=== PATIENT | male | born 1975 | race African-American/Black ===

== ENCOUNTER → 2018-09-21 | Outpatient (CLI) | payer OTHER ==
[~2018-09-21] MED LIST: CIPRO500 MG PO; HYDROCODONE-AP1 EAC6 PO; IBUPROFEN 800800 M1 PO; NOHOMEMEDICATIONS; NORCO 5-325 TA1 EACH PO; OMEPRAZOLE 20 M20 M1 PO; ONDANSETRON HCL4 M2 PO; ZIAGEN 300 MG300 MG
== END ==
LOC: M.RAD 16:08
DX: M54.5 Low back pain (principal); M25.552 Pain in left hip; V89.2XXA Person injured in unspecified motor-vehicle accident, traffic, initial encounter

== ENCOUNTER 2019-07-03 14:43 | Inpatient (IN) | payer OTHER ==
[2019-07-03] VITALS (7 sets, daily range): BP systolic 114–155; BP diastolic 78–107
[~2019-07-03] VITALS: Ht 175.3 cm; Wt 81.6 kg
[2019-07-03] MEDS ORDERED: ZESTORETIC 20-1 EAC3 PO (14:50)
[2019-07-03 14:58] LABS: HEMATOCRIT 36.6 % (42.0-52.0); HEMOGLOBIN 12.7 gm/dL (14.0-18.0); MCH 31.7 pg (26.0-34.0); MCHC 34.9 g/dL (28.0-37.0); MCV 91.1 fL (80.0-100.0); MPV 9.3 fl. (7.2-11.1); RBC 4.01 mil/uL (4.50-6.00); RDW-CV 15.4 % (10.5-14.5)
[2019-07-03 15:18] LABS: ANION GAP 12 mmol/L (7-16); BUN 39 mg/dL (7-18); CALCIUM 8.9 mg/dL (8.5-10.1); CHLORIDE 101 mmol/L (98-107); CO2 23 mmol/L (21-32); CREATININE 1.8 mg/dL (0.6-1.3); GLUCOSE 107 mg/dL (70-99); POTASSIUM 4.4 mmol/L (3.5-5.1); SODIUM 136 mmol/L (136-145)
[2019-07-03 15:23] LABS: ALBUMIN 3.7 g/dL (3.4-5.0); ALKALINE PHOSPHATASE 94 U/L (46-116); TOTAL BILIRUBIN 0.4 mg/dL (<0.1-1.0); TROPONIN-I LEVEL <0.06 ng/mL (<0.06)
[2019-07-03 15:42] LABS: SGOT 31 U/L (15-37); SGPT 43 U/L (30-65)
[2019-07-03] MEDS ORDERED: BENTYL 10 MG CA10 M1 PO (18:12)
[2019-07-03] MEDS ORDERED: CELEBREX 200 M200 M1 PO (18:16)
[2019-07-03] MEDS ORDERED: DICYCLOMINE HCL20 MG PO (18:16)
[2019-07-03] MEDS ORDERED: TYLENOL EXTRA500 MG PO (18:16)
[2019-07-04] VITALS (27 sets, daily range): BP systolic 117–155; BP diastolic 76–112
[2019-07-04 03:39] LABS: CALCIUM 9.4 mg/dL (8.5-10.1); CREATININE 1.4 mg/dL (0.6-1.3); POTASSIUM 4.6 mmol/L (3.5-5.1)
[2019-07-04 03:50] LABS: HEMATOCRIT 37.6 % (42.0-52.0); HEMOGLOBIN 12.5 gm/dL (14.0-18.0); MCH 30.4 pg (26.0-34.0); MCHC 33.3 g/dL (28.0-37.0); MCV 91.4 fL (80.0-100.0); MPV 10.1 fl. (7.2-11.1); NUCLEATED RBCS 0 /100WBC; PLATELET COUNT* 197 thou/uL (150-400); RBC 4.12 mil/uL (4.50-6.00); RDW-CV 15.5 % (10.5-14.5); WBC 14.2 thou/uL (4.0-11.0)
[2019-07-04 04:57] LABS: ABSOLUTE EOSINOPHILS 0.1 thou/uL (0.0-0.7); ABSOLUTE LYMPHOCYTES 1.7 thou/uL (0.8-5.3); ABSOLUTE MONOCYTES 0.1 thou/uL (0.0-1.2); ABSOLUTE NEUTROPHILS 12.2 thou/uL (1.6-8.1); ANISOCYTOSIS 1+; PLATELET ESTIMATE ADEQUATE
--- NOTE | 2019-07-04 14:42 | EKG ---
[place] [address] ELECTROCARDIOGRAM REPORT Name: JAMAICA BURNETTE Room: [address] ADM IN M.R.#: [id number] Admission: 07/03/19 Attend Phys: Harinder Damico MD Discharge: Date of : 73 Report #: [id number] THIS REPORT FOR: //name// [facility] Test Date: 2019-07-04 Test Time: 11:42:28 Pat Name: JAMAICA BURNETTE Department: Room: [address] Gender: M Assistant Basketball Coach: : 1975 Requested By: Harinder Damico Order Number: [id number] MD: Tobi Hamm Measurements Intervals Outlook Rate: 123 P: 46 [place]: 166 QRS: 26 QRSD: 92 T: -26 QT: 298 QTc: 427 Interpretive Statements Sinus tachycardia Borderline T abnormalities, inferior leads Compared to ECG 08/20/2014 21:25:55 T-wave abnormality now present Sinus rhythm no longer present Electronically Signed On 07-04-2019 14:41:55 CDT by Tobi Hamm [email or web address] <ELECTRONICALLY SIGNED> By: Tobi Hamm MD, [facility] 07/04/19 1441 1142 1142 Tobi Hamm MD, [facility] /EPI
--- NOTE | 2019-07-04 15:28 | 2DMMODE ---
[place] [address] 2 D/M-MODE ECHOCARDIOGRAM Name: JAMAICA BURNETTE Room: [address] IN [facility]#: [id number] Admission: 07/03/19 Attend Phys: Harinder Damico, Discharge: Date of : 73 Date of Service: 07/04/19 1527 Report #: [id number] THIS REPORT FOR: //name// APPROVED REPORT Study performed: 07/04/2019 14:28:53 EXAM: Comprehensive 2D, Doppler, and color-flow Echocardiogram Patient Location: In-Patient Room #: 003 BSA: 1.98 HR: 132 bpm BP: 155/107 mmHg Other Information Study Quality: Good Indications Abnormal ECG 2D Dimensions IVSd: 11.48 (7-11mm) LVOT Diam: 20.66 (18-24mm) LVDd: 47.01 mm PWd: 10.66 (7-11mm) Ascending Ao: 29.81 (22-36mm) LVDs: 20.86 (25-40mm) Aortic Root: 29.77 mm Volumes Left Atrial Volume (Systole) LA ESV Index: 9.60 mL/m2 Aortic Valve AoV Peak Jesús.: 1.45 m/s AO Peak Gr.: 8.46 mmHg LVOT Max P.02 mmHg AO Mean Gr.: 5.03 mmHg LVOT Mean P.92 mmHg LVOT Max V: 1.23 m/s AO V2 VTI: 24.94 cm LVOT Mean V: 0.79 m/s SAMAN (VTI): 2.58 cm2 LVOT V1 VTI: 19.18 cm TDI Medial E' Jesús.: 0.20 m/s Lateral E' Jesús.: 0.11 m/[place] [address] 2 D/M-MODE ECHOCARDIOGRAM Name: JAMAICA BURNETTE Room: [address] IN [facility]#: [id number] Admission: 07/03/19 Attend Phys: Harinder Damico, Discharge: Date of : 73 Date of Service: 07/04/19 1527 Report #: [id number] PV Peak Jesús.: 1.46 m/s PV Peak Gr.: 8.50 mmHg Tricuspid Valve RAP Estimate: 5.00 mmHg TR Peak Gr.: 26.86 mmHg RVSP: 31.86 mmHg PA Pressure: 31.86 mmHg Left Ventricle The left ventricle is normal size. There is normal LV segmental wall motion. There is normal left ventricular wall thickness. Left ventricular systolic function is normal. LVEF is >70%. This study is not technically sufficient to allow evaluation of the LV diastolic function. Right Ventricle The right ventricle is normal size. The right ventricular systolic function is normal. Atria The left atrium size is normal. The right atrium size is normal. Aortic Valve The aortic valve is normal in structure. No aortic regurgitation is present. There is no aortic valvular stenosis. Mitral Valve The mitral valve is normal in structure. There is no mitral valve regurgitation noted. No evidence of mitral valve stenosis. Tricuspid Valve The tricuspid valve is normal in structure. There is no tricuspid valve regurgitation noted. Pulmonic Valve The pulmonary valve is normal in structure. There is no pulmonic valvular regurgitation. Great Vessels The aortic root is normal in size. IVC is normal in size and collapses >50% with inspiration. Pericardium There is no pericardial effusion. <Conclusion> [place] [address] 2 D/M-MODE ECHOCARDIOGRAM Name: JAMAICA BURNETTE Room: [address] IN M.R.#: [id number] Admission: 07/03/19 Attend Phys: Harinder Damico, Discharge: Date of : 73 Date of Service: 07/04/19 1527 Report #: [id number] The left ventricle is normal size. There is normal left ventricular wall thickness. Left ventricular systolic function is normal. LVEF is >70%. This study is not technically sufficient to allow evaluation of the LV diastolic function. There is normal LV segmental wall motion. IVC is normal in size and collapses >50% with inspiration. <ELECTRONICALLY SIGNED> By: Clyde Romano MD, FACC 07/04/19 1527 1527 1527 Clyde Romano MD, FACC /INF
[2019-07-04 19:45] LABS: AMP/METHAMP Negative (Negative); BARBITURATES Negative (Negative); BENZODIAZEPINES Negative (Negative); COCAINE Negative (Negative); METHADONE Negative (Negative); OPIATES Negative (Negative); PCP Negative (Negative); THC POSITIVE (Negative)
[2019-07-05] VITALS: BP 153/101
[2019-07-05 04:30] VITALS: BP 141/92
[2019-07-05 05:30] LABS: ABSOLUTE LYMPHOCYTES 1.3 thou/uL (0.8-5.3); ABSOLUTE MONOCYTES 1.2 thou/uL (0.0-1.2); ABSOLUTE NEUTROPHILS 18.4 thou/uL (1.6-8.1); BASOPHILS 0.2 %; HEMATOCRIT 35.7 % (42.0-52.0); HEMOGLOBIN 11.9 gm/dL (14.0-18.0); LYMPHOCYTES 6.4 %; MCH 30.7 pg (26.0-34.0); MCHC 33.5 g/dL (28.0-37.0); MCV 91.6 fL (80.0-100.0); MONOCYTES 5.9 %; NUCLEATED RBCS 0 /100WBC; PLATELET COUNT* 202 thou/uL (150-400); POLYS 87.5 %; RDW-CV 15.5 % (10.5-14.5)
[2019-07-05 05:42] LABS: CREATININE 1.3 mg/dL (0.6-1.3); POTASSIUM 4.2 mmol/L (3.5-5.1)
[2019-07-05 07:30] VITALS: BP 134/93
[2019-07-05] MEDS ORDERED: BENADRYL25 MG PO (10:46)
[2019-07-05] MEDS ORDERED: CARDIZEM CD240 MG PO (10:46)
[2019-07-05] MEDS ORDERED: PREDNISONE 10 M10 MG PO (10:47)
[2019-07-05 10:51] VITALS: BP 134/93
== END 2019-07-05 11:33 | disposition home or self-care (01) | DRG 916 ==
LOC: M.ERS 14:43 → M.ICU 15:49 → M.TBA-ER 15:49 → M.ICU 17:43 → M.2W 07-05 00:57
PROVIDERS: Emergency Medicine Emergency Medical Services; Family Medicine; ADMIT Internal Medicine
DX: T78.3XXA Angioneurotic edema, initial encounter (principal); N17.9 Acute kidney failure, unspecified; I10 Essential (primary) hypertension; F17.200 Nicotine dependence, unspecified, uncomplicated; R00.0 Tachycardia, unspecified; R06.03 Acute respiratory distress; Z88.8 Allergy status to other drugs, medicaments and biological substances; Z79.899 Other long term (current) drug therapy; Y92.89 Other specified places as the place of occurrence of the external cause